=== PATIENT | female | born 1960 | race Caucasian/White ===

== ENCOUNTER → 2016-11-23 | Outpatient (CLI) | payer BC ==
[~2016-11-23] MED LIST: NO HOME MEDICATIONS
== END ==
LOC: MC.RAD 13:12
DX: Z12.31 Encounter for screening mammogram for malignant neoplasm of breast (principal); Z80.3 Family history of malignant neoplasm of breast

== ENCOUNTER → 2017-12-01 | Outpatient (CLI) | payer OTHER | LOC: MC.RAD 14:09 | DX: Z12.31 Encounter for screening mammogram for malignant neoplasm of breast (principal) ==

== ENCOUNTER → 2019-01-19 | Outpatient (CLI) | payer OTHER | LOC: MC.RAD 13:26 | DX: Z12.31 Encounter for screening mammogram for malignant neoplasm of breast (principal) ==

== ENCOUNTER 2019-10-29 08:00 | Day surgery (SDC) | payer OTHER ==
[~2019-10-29] VITALS: Ht 167.6 cm; Wt 111.7 kg
[2019-10-29] MEDS ORDERED: VESICARE 5MG5 MG PO (08:29)
[2019-10-29] MEDS ORDERED: LEVOXYL0.125 MG PO (08:29)
[2019-10-29] MEDS ORDERED: WELLBUTRIN XL300 M1 PO (08:29)
[2019-10-29 08:30] VITALS: BP 137/90; PULSE 79; TEMP 98.2
[2019-10-29 10:35] VITALS: BP 114/71; PULSE 76; TEMP 97.5
--- NOTE | 2019-10-29 10:35 | NUR ---
PT TO BAY 2 VIA CART FROM ENDO ROOM, WALKED TO CHAIR, IN ROOM, CALL LIGHT IN REACH, DRINKS WATER, NO OTHER REQUESTS
[2019-10-29 10:50] VITALS: BP 132/90; PULSE 66
--- NOTE | 2019-10-29 10:50 | NUR ---
IN ROOM TO TALK TO PT AND , NO QUESTIONS OR REQUESTS
[2019-10-29 10:58] VITALS: TEMP 97.5
[2019-10-29 11:05] VITALS: BP 111/76; PULSE 68
--- NOTE | 2019-10-29 11:15 | NUR ---
REVIEWED DISCHARGE INST. WITH PT AND ON FOLLOWUP WITH PRIMARY, OFFICE WILL CONTACT ON RESULTS OF POLYPS, FOR ACTIVITY TODAY AND COMPLICATIONS WITH VERBAL UNDERSTANDING. IV D'CD INTACT. PT UP IN ROOM DRESSED, DISCHARGED VIA W/C TO CAR WITH AT 1120
== END 2019-10-29 11:20 | disposition home or self-care (01) ==
LOC: SDCO 08:00
DX: Z12.11 Encounter for screening for malignant neoplasm of colon (principal); D12.2 Benign neoplasm of ascending colon; K57.30 Diverticulosis of large intestine without perforation or abscess without bleeding; K64.8 Other hemorrhoids; Z90.89 Acquired absence of other organs; Z90.710 Acquired absence of both cervix and uterus; Z79.899 Other long term (current) drug therapy; F41.9 Anxiety disorder, unspecified; Z91.048 Other nonmedicinal substance allergy status; E03.9 Hypothyroidism, unspecified
CPT/HCPCS: J2704; J7030

== ENCOUNTER → 2020-01-23 | Outpatient (CLI) | payer OTHER ==
[~2020-01-23] MED LIST changes: +LEVOXYL0.125 MG PO; +VESICARE 5MG5 MG PO; +WELLBUTRIN XL300 M1 PO
== END ==
LOC: MC.RAD 18:33
DX: Z01.419 Encounter for gynecological examination (general) (routine) without abnormal findings (principal); Z12.31 Encounter for screening mammogram for malignant neoplasm of breast

== ENCOUNTER → 2021-01-23 | Outpatient (CLI) | payer OTHER | LOC: MC.RAD 12:55 | DX: Z12.31 Encounter for screening mammogram for malignant neoplasm of breast (principal); Z01.419 Encounter for gynecological examination (general) (routine) without abnormal findings ==

== ENCOUNTER 2021-11-21 15:54 | Emergency (ER) | payer OTHER ==
[~2021-11-21] VITALS: Ht 167.6 cm; Wt 104.5 kg
[2021-11-21 16:02] VITALS: TEMP 97.6
[2021-11-21] MEDS ORDERED: DESYREL 50MG50 MG PO (16:08)
[2021-11-21 17:11] VITALS: BP 141/90; PULSE 89
== END 2021-11-21 17:13 | disposition home or self-care (01) ==
LOC: COL.ER 15:54
DX: S00.93XA Contusion of unspecified part of head, initial encounter (principal); S20.20XA Contusion of thorax, unspecified, initial encounter; S80.11XA Contusion of right lower leg, initial encounter; S30.810A Abrasion of lower back and pelvis, initial encounter; W10.9XXA Fall (on) (from) unspecified stairs and steps, initial encounter; Y93.39 Activity, other involving climbing, rappelling and jumping off; Y92.009 Unspecified place in unspecified non-institutional (private) residence as the place of occurrence of the external cause

== ENCOUNTER → 2022-02-17 | Outpatient (CLI) | payer OTHER ==
[~2022-02-17] MED LIST changes: +DESYREL 50MG50 MG PO
== END ==
LOC: MC.RAD 14:30
DX: Z12.31 Encounter for screening mammogram for malignant neoplasm of breast (principal)